=== PATIENT | female | born 1950 | race Caucasian/White ===

== ENCOUNTER 2017-01-04 08:50 | Outpatient (CLI) | payer OTHER | END 2017-01-04 08:51 | disposition home or self-care (01) | DX: Z12.31 Encounter for screening mammogram for malignant neoplasm of breast (principal) ==

== ENCOUNTER 2017-03-30 11:11 | Outpatient (CLI) | payer OTHER ==
--- NOTE | 2017-03-30 13:28 | Ultrasound Report ---
CAROTID DUPLEX: 03/30/2017 CLINICAL INDICATION: TIA. TECHNIQUE: Real-time sonographic vascular imaging was performed by the tape controlled machine stitcher through the carotid arteries utilizing both color-flow and Doppler spectral analysis. Multiple outside sales representative insurance static images were saved for review. Vessel PSV cm/sec 2D Plaque Estimate % ICA/CCA PSV EDV cm/sec % Stenosis RCCA Prox 136 -- RCCA Dist 72 16 RECA 52 -- RT BULB 66 -- 0.9 12 COTY Prox 82 -- 1.1 27 COTY Mid 64 -- 0.9 21 COTY Dist 96 -- 1.3 31 RVA 54 RVA flow direction: Antegrade. Vessel PSV cm/sec 2D Plaque Estimate % ICA/CCA PSV EDV cm/sec % Stenosis LCCA Prox 73 -- LCCA Dist 67 19 LECA 61 -- LFT BULB 43 -- 0.6 14 LICA Prox 62 -- 0.9 23 LICA Mid 84 -- 1.3 31 LICA Dist 90 -- 1.3 33 LVA 47 LVA flow direction: Antegrade. Velocity criteria are extrapolated from diameter data as defined by the Society of Radiologists in Ultrasound Consensus Conference Radiology 2003; 229; 340-346. Degree of Stenosis % ICA PSV cm/sec Plaque Estimate % ICA/CCA RSV Ratio ICA EDV cm/sec Normal < 125 None < 2.0 < 40 <50 < 125 < 50 < 2.0 < 40 50-69 125 - 130 >/= 50 2.0 - 4.0 40 - 100 >/= 70 but less than near occlusion > 230 >/= 50 > 4.0 > 100 Near occlusion High, low, or undetectable Visible lumen Variable Variable Total occlusion Undetectable No detectable lumen Not applicable Not applicable FINDINGS RIGHT: There is no plaquing in the right carotid bifurcation or internal carotid artery. LEFT: There is no plaquing in the left carotid bifurcation or internal carotid artery. The vertebral arteries demonstrate antegrade flow bilaterally. IMPRESSION: NORMAL CAROTID DUPLEX. MTDD
== END 2017-03-30 11:12 | disposition home or self-care (01) ==
LOC: DI 11:11
PROVIDERS: ATTEND Physician Assistant
DX: R20.0 Anesthesia of skin (principal); R01.1 Cardiac murmur, unspecified
CPT/HCPCS: 93880

== ENCOUNTER 2018-05-23 10:49 | Outpatient (CLI) | payer MEDICARE, OTHER ==
--- NOTE | 2018-05-24 14:26 | Mammography Report ---
Reason: SCREENING w JORGE Procedure Date: 05/23/2018 Accession Number: [id number] / [id number] Procedure: [facility]ANIELLE - Screening Mammo w/Jorge CPT Code: FULL RESULT: EXAM: Screening Mammo w/Jorge DATE: 05/23/2018 11:27 AM CLINICAL HISTORY: 68-year-old female with history of late childbearing. TECHNIQUE: Bilateral CC and MLO views were obtained. COMPARISON: 01/04/2017, 11/20/2014, 07/27/2013, 07/17/2012. FINDINGS: The breasts demonstrate scattered fibroglandular densities bilaterally. No suspicious masses, clustered microcalcifications, or regions of architectural distortion are identified. IMPRESSION: Negative examination RECOMMENDATION: Routine annual screening unless otherwise clinically indicated. BIRADS CATEGORY 1: Negative STANDARD QUALIFYING STATEMENTS: 1. This examination was not reviewed with the aid of Computer-Aided Detection (CAD). 2. A negative or benign imaging report should not delay biopsy if clinically suspicious findings are present. Consider surgical consultation if warrented. More than 5% of cancers are not identified by imaging. 3. Dense breasts may obscure an underlying neoplasm. 4. This examination was reviewed with the aid of 3D breast imaging (tomosynthesis).
== END 2018-05-23 10:50 | disposition home or self-care (01) ==
LOC: DI 10:49
DX: Z12.31 Encounter for screening mammogram for malignant neoplasm of breast (principal)
CPT/HCPCS: 77063; 77067

== ENCOUNTER 2018-07-05 11:24 | Outpatient (CLI) | payer MEDICARE, OTHER ==
--- NOTE | 2018-07-05 13:40 | XRAY Report ---
Reason: PAIN IN LEFT HIP Procedure Date: 07/05/2018 Accession Number: [id number] / [id number] Procedure: XR - Hips 2V BILAT CPT Code: FULL RESULT: EXAM: BILATERAL HIP RADIOGRAPHY EXAM DATE: 07/05/2018 11:34 AM. CLINICAL HISTORY: Pain in left hip. COMPARISON: None. TECHNIQUE: 2 views each. FINDINGS: Bones: No acute fracture or bone lesion identified. Joint spaces are preserved for age. There is mild osteitis pubis. Degenerative facet and disk changes are noted at L4-L5 and L5-S1. Right Hip: Normal. No dislocation. The hip joint space is preserved. Left Hip: Normal. No dislocation. The hip joint space is preserved. Soft Tissues: Calcification superimposing in the central and right pelvis could indicate calcified uterine fibroids. IMPRESSION: 1. No evidence of acute hip fracture or joint space abnormality. 2. 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 RADIA
== END 2018-07-05 11:25 | disposition home or self-care (01) ==
LOC: DI 11:24
PROVIDERS: ATTEND Nurse Practitioner Family
DX: M25.552 Pain in left hip (principal); M51.36 Other intervertebral disc degeneration, lumbar region
CPT/HCPCS: 73521